=== PATIENT | female | born 1955 | race Asian ===

== ENCOUNTER 2017-04-13 13:43 | Day surgery (SDC) | payer OTHER ==
[~2017-04-13] VITALS: Ht 162.6 cm; Wt 72.6 kg
[~2017-04-13 13:43] MED LIST: MULT-666 PO; POLY17PO6 PO; Sodium Chloride LOK Flush 10 mL Syringe IV PRN; fentaNYL-PF 50 mCg/mL 2 mL Inj IVPUSH PRN
[2017-04-13 14:38] VITALS: BP 121/87; PULSE 54; RESP 12; O2SAT 100
[2017-04-13] MEDS: 0.9% Sodium Chloride 1,000 ML IV SCH ×2 (14:52→16:43)
[2017-04-13 16:58] VITALS: BP 100/64; PULSE 54; RESP 16; O2SAT 98
[2017-04-13 17:00] VITALS: BP 102/62; PULSE 57; RESP 17; O2SAT 100
[2017-04-13 17:10] VITALS: BP 104/63; PULSE 55; RESP 16; O2SAT 100
--- NOTE | 2017-04-13 19:05 | ENDO ---
[address] [address] ENDOSCOPY PROCEDURE PATIENT: CESAR NEIL : 1955 MR#: [id number] ADMIT: 04/13/2017 JOB ID: [id number] DATE OF SERVICE: 04/13/2017 PROCEDURE: Colonoscopy. INDICATIONS: Change in bowel habit. The patient's ASA classification is 2, Mallampati score is 2. MEDICATIONS: Versed 3 mg, fentanyl 55 mcg. INSTRUMENT USED: PCF H 190 L. PREPARATION QUALITY: Fair. PROCEDURE DETAILS: After informed consent was obtained, the patient was brought into the GI suite, where she was placed on oxygen via nasal cannula and monitored with continuous pulse oximeter, telemetry, and blood pressure monitoring. A time-out was performed, then she was placed in a left lateral decubitus position and medications were administered for sedation. Digital rectal exam was performed which was unremarkable. The colonoscope was then inserted into the rectum and advanced under direct visualization to the cecum was identified by the presence of the ileocecal valve and appendiceal orifice. Once the cecum was reached, the colonoscope was withdrawn back into the rectum as the mucosa and lumen were examined. In the rectum, retroflexion was performed. Following retroflexion, remaining air in the rectum was suctioned, and procedure was completed. FINDINGS: Scattered diverticula were seen throughout the left side of the colon. Otherwise, normal exam from rectum to cecum. IMPRESSION: Left-sided diverticulosis. RECOMMENDATIONS: 1. Fiber rich diet. 2. Consider trial of MiraLAX daily. 3. Follow up in GI clinic as needed. COMPLICATIONS: None. ESTIMATED BLOOD LOSS: 0.
== END 2017-04-13 23:59 | disposition home or self-care (01) ==
LOC: END 13:43
PROVIDERS: ATTEND Internal Medicine Gastroenterology
DX: R19.4 Change in bowel habit (principal); K57.30 Diverticulosis of large intestine without perforation or abscess without bleeding; R63.4 Abnormal weight loss
CPT/HCPCS: 45378; G0500; J2250; J3010; J7030